=== PATIENT | male | born 1945 ===

== ENCOUNTER 2017-02-22 18:06 | Emergency (ER) | payer SELFPAY ==
[~2017-02-22] VITALS: Ht 172.7 cm; Wt 88.5 kg
[2017-02-22 18:08] VITALS: BP 140/70; PULSE 62; RESP 24; TEMP 98.7; O2SAT 99
== END 2017-02-22 20:00 | disposition left against medical advice (07) ==
LOC: NED 18:06
DX: K08.9 Disorder of teeth and supporting structures, unspecified (principal)
CPT/HCPCS: 99281